=== PATIENT | male | born 2000 | race Caucasian/White ===

== ENCOUNTER 2019-04-11 14:00 | Emergency (ER) | payer SELFPAY ==
[2019-04-11 14:20] VITALS: BP 147/93; PULSE 88; TEMP 98.4; BMI 31.2
--- NOTE | 2019-04-11 15:03 | PDOC ---
History of Present Illness - General Chief Complaint: Redness To Affected Area Stated Complaint: FINGER INFECTION Time Seen by Provider: 04/11/19 14:42 - History of Present Illness Initial Comments: 04/11/19 16:09 18y M with no signficant PMH presenting to ED for R index finger swelling x 3 days. Pt states it has been getting swollen. He endorses biting his finger nails. This has not happened to him before. Denies injury, animal bites, fevers , chills. Past History - Past Medical History Allergies/Adverse Reactions: Allergies Allergy/AdvReac Type Severity Reaction Status Date / Time amoxicillin [Amoxicillin] Allergy Verified 04/11/19 14:25 Home Medications: Ambulatory Orders No Home Medications 0 dose .ROUTE UTDICT 01/23/13 Cephalexin Monohydrate [Keflex -] 500 mg PO Q6H #40 capsule 04/11/19 Asthma: Yes COPD: No - Immunization History Immunization Up to Date: Yes - Psycho Social/Smoking Cessation Hx Smoking History: Never smoked Hx Alcohol Use: No Drug/Substance Use Hx: No Review of Systems - Review of Systems Constitutional: No: Symptoms Reported Integumentary: Yes: See HPI *Physical Exam - Vital Signs Last Vital Signs Temp Pulse Resp BP Pulse Ox 98.4 F 88 18 147/93 100 04/11/19 14:13 04/11/19 14:13 04/11/19 14:13 04/11/19 14:13 04/11/19 14:13 - Physical Exam General Appearance: Yes: Nourished, Appropriately Dressed. No: Apparent Distress Comments:: 04/12/19 20:25 radial pulses 2+ Musculoskeletal: negative: CVA Tenderness Integumentary: positive: Other (R index finger swelling to tip proximal to finger nail with fluctuation. no erythema. ) Procedures - Incision and Drainage I&D Site: Right: Paronychia Betadine cleansed: No Anesthesia: other (EMLA) Blade Size: 10 Attempts: 1 Plain Packing: No Complications: none Medical Decision Making - Medical Decision Making 04/12/19 20:26 18y M presenting with paronychia. will place emla cream and drain. emla applied. blade introduced at base of fingernail and fold of skin. purulent material expressed. pt tolerated procedure well. given keflex to cover for infection. given return precautions. Discharge - Discharge Information Problems reviewed: Yes Clinical Impression/Diagnosis: Paronychia Condition: Good Disposition: HOME - Admission No - Additional Discharge Information Prescriptions: Cephalexin Monohydrate [Keflex -] 500 mg PO Q6H #40 capsule - Follow up/Referral - Patient Discharge Instructions Patient Printed Discharge Instructions: DI for Paronychia Additional Instructions: You have paronychia. It was drained. Keep the area clean and dry. Use only water and mild soap to clean. Apply pressure to the finger. You can take ibuprofen/Advil for the pain as needed. A prescription for an antibiotic called Keflex was sent to your pharmacy; take as directed. Come back to the ER if you have worsening swelling, if the finger is painful or if any new or concerning symptom develops. Thank you - Post Discharge Activity
[2019-04-11] MEDS ORDERED: LIDOCAINE 2.5%/PRILOCAINE 2.5% (5 Gram/TUBE) TP ONE ×2 (15:15→15:33)
--- NOTE | 2019-04-11 15:43 | PDOC ---
Attending Attestation - Resident Resident Name: BriaRenee - ED Attending Attestation I have performed the following: I have examined & evaluated the patient, The case was reviewed & discussed with the resident, I agree w/resident's findings & plan, Exceptions are as noted - HPI HPI: 04/11/19 15:42 Swelling and pain right index finger for several days. Bites nails. No diabetes or other medical problem, although he is considerably overweight - Physicial Exam PE: 04/11/19 15:42 Paronychia with considerable swelling, erythema, fluctuance. Pus is visible around the cuticle - Medical Decision Making 04/11/19 15:42 Assessment: Acute paronychia Plan: Drainage, warm soaks, follow-up if swelling worsens or pus reaccumulate. 04/11/19 16:34 EMLA was applied with occlusion. Good anesthesia. The cuticle was elevated and pus was expressed. The patient was more comfortable afterwards. Antibiotics were prescribed and he was instructed to use warm soaks and gently massage the cuticle several times per day to express any pus that continues to form. Follow-up primary physician if pain or swelling persists. Fully ambulatory in no pain at discharge
== END 2019-04-11 16:16 | disposition home or self-care (01) ==
LOC: FER 14:00
PROC: 0H9FXZZ Drainage of Right Hand Skin, External Approach (ICD-10-PCS; principal; 2019-04-11)
DX: L03.011 Cellulitis of right finger (principal); J45.909 Unspecified asthma, uncomplicated; Z88.1 Allergy status to other antibiotic agents
CPT/HCPCS: 99283-25